=== PATIENT | male | born 1975 ===

== ENCOUNTER 2024-12-04 10:12 | Outpatient (AMB) | payer OTHER, SELFPAY ==
--- NOTE | 2024-12-04 10:17 | A.OFFVIS_ITS ---
Vital Signs 12/04/24 10:18 Height 5 ft 10 in Weight 257 lb 15.053 oz BMI 37.0 BP 130/84 Blood Pressure Location Rt brachial Position Sitting Pulse 71 Pulse Source Pulse Oximeter Pulse Oximetry (%) 98 Oxygen Delivery Method Room Air Intake Visit Reasons: Obstructive sleep apnea Allergies No Known Allergies Allergy (Verified 12/04/24 10:21) HPI Comments Details: The patient is a 49-year-old gentleman with a known history of severe sleep apnea. Apparently the patient was in usual state health until had a consultatio n with his dentist. The patient did have an elevated [place] score with significant daytime drowsiness. He has also had documented snoring with apneic episodes. The patient did undergo home sleep study demonstrating severe sleep apnea with an AHI of 47 events an hour. He was also noted to be hypoxic down to 76%. Therefore, he was referred to his primary care doctor who ordered the APAP. The APAP set at 4-20 with a fullface mask. The patient cannot use a nasal mask since he had injury or trauma to his nasal passages a child and been difficult for him to breathe through his nose. Initially he was tolerating the APAP. But we have episodes of increase difficulty tolerating the machine would have to take it off. Therefore, he would only tolerated for couple hours. He is also having hard time sleeping. Sometimes he stays awake for a while we also falls asleep and wakes up very quickly. He did bring his APAP in. We did download the data. It appears that his average pressure is around 10.4 cm. We did adjust the machine with a ramp for and to titrate between 6-10 cm. He does tolerate that or he feels like this too low can always call and we can adjust the machine accordingly. He is also complaining that the air is too hot. He immediately was set up for in the tubing was non heated tubing. Therefore I did decrease the humidity to for now and did request his [employer] company to provide him with heated tubing to set up a better temperature better tolerance for his APAP. Otherwise patient is without any other complaints. We did talk about the seriousness of the severe sleep apnea the importance using the machine to reduce his cardiovascular and cerebrovascular risk. 12/04/2024 the patient is here for a pulmonary follow-up visit. Overall the patient has been doing very well. He has been use the CPAP every night CPAP therapy has been affecting beneficial. He has finally gotten comfortable with. He did have 2 by mask, Respironics DreamWear. Seems to be tolerating it well. Although it does irritate his nose. I did provide him with a ResMed AirTouch and 30 I mask medium does seem to fit comfortably and did not irritate his nose. He is going to try and see if this works for him. I will also request supplies from his [employer] company, [employer]. I did reach out to them to make sure that he is still active. Although he does uses machine well. From a breathing standpoint he recently had a cough and likely from a viral syndrome. Now has gotten more congested. Also having some chest tightness and some post exhalation wheezing. He has used inhalers in the past right now on go ahead and send him some Symbicort that he can use for period of time. [facility] Medical History (Updated 12/04/24 @ 20:37 by Gonzalo Rcio MD) Reactive airway disease Chronic rhinitis Insomnia JENNIFER on CPAP Social History (Updated 12/04/24 @ 10:20 by Savannah Forbes CMA) Patient Tobacco Use Status: Former Tobacco user Review of Systems Const Denies daytime sleepiness, Denies snoring and Reports weight loss Eyes Denies change in vision ENT Reports epistaxis, Reports nasal congestion, Reports nasal obstruction and Denies throat swelling Card Denies chest pain Resp Reports cough and Denies snoring GI Reports no additional complaints Musc Reports no additional complaints Skin/Breast Denies rash Neuro Reports no additional complaints Nimesh/Lymph Denies easy bleeding and Denies easy bruising Aller/Immun Denies throat swelling Physical Exam Vital Signs: Last Vital Signs Pulse 71 12/04/24 10:18 BP 130/84 12/04/24 10:18 Pulse Ox 98 12/04/24 10:18 Oxygen Delivery Method Room Air 12/04/24 10:18 BMI result Body Mass Index 37.0 Const General: comfortable HEENT Head: Yes atraumatic General nose exam: Abnormal mucous membranes and turbinates present erythematous and Nasal discharge present Eyes General: appearance normal, both eyes and all related structures Neck Neck: Yes supple Chest Chest palpation & inspection: normal inspection of the chest Resp Effort & Inspection: normal respiratory effort and prolonged expiratory phase Auscultation: diminished lung sounds Cardio Rate: regular rate Rhythm: regular rhythm Heart sounds: S1 normal heart sound present and S2 normal heart sound present GI Auscultation: normal bowel sounds Extrem General: Yes no clubbing, cyanosis or edema Assessment & Plan Assessment & Plan (1) JENNIFER on CPAP: Code(s): G47.33 - Obstructive sleep apnea (adult) (pediatric); Z99.89 - Dependence on other enabling machines and devices Category: Medical (2) Insomnia: Code(s): G47.00 - Insomnia, unspecified Category: Medical Qualifiers: Insomnia type: primary Qualified Code(s): F51.01 - Primary insomnia (3) Chronic rhinitis: Code(s): J31.0 - Chronic rhinitis Category: Medical (4) Reactive airway disease: Code(s): J45.909 - Unspecified asthma, uncomplicated Category: Medical Qualifiers: Asthma severity: moderate Asthma persistence: persistent Asthma complication type: uncomplicated Qualified Code(s): J45.40 - Moderate persistent asthma, uncomplicated Plan Adjusted APAP Ramp 4, 6-10 with N30i airtouch Trazodone for sleep sinus rinse at night Fluticasone nasal spray saline gel start Symbicort start Zpack Tessalon pearls F/U 8-12 months Medications: New budesonide-formoterol 160-4.5 mcg/actuation (Breyna) 2 puffs inhalation BID 10.2 grams 11RF 30 days J44.89 - Other specified chronic obstructive pulmonary disease azithromycin 500 mg PO DAILY 3 tabs 0RF 3 days benzonatate 200 mg PO BID PRN 60 caps 0RF cough 30 days Coding Level of Care Code Est Pt Level 4 (90228) Diagnoses JENNIFER on CPAP G47.33; Z99.89 Primary insomnia F51.01 Insomnia type: primary Chronic rhinitis J31.0 Moderate persistent reactive airway disease without complication J45.40 Asthma severity: moderate Asthma persistence: persistent Asthma complication type: uncomplicated Time Spent (min) 17
[2024-12-04 10:18] VITALS: BP 130/84; PULSE 71; O2SAT 98; BMI 37.0
--- OUTSIDE RECORDS SUMMARY | 2024-12-04 11:18 | XMS_ITS ---
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5 and Other obesity E66.8 ASSESSMENTS Encounter Date Diagnosis Assessment Notes Treatment Notes Treatment Clinical Notes Section Notes 06/06/2023 Elevated blood pressure reading in office without diagnosis of hypertension (ICD-10 - R03.0) #Polyarthralgia Pt instructed to try taking turmeric supplements everyday Will discuss again after lab results Ordered RF, JEFFERSON, CRP, ERP, tick panel rheum referall #JENNIFER We sent in a request for an auth for a CPAP along with the report 2 months ago Lisa, for supplies, order sent, copy to patient to followup with them since he hasnt recieved it yet #Colonoscopy Ordered colonoscopy, GI referall #HTN BP normotensive today in the office We will check it again next visit Meanwhile, patient was told to cut down on sodium intake and eat a healthier diet DAVID if otherwise #Grieving/depress ion He was instructed to go immediately to ER and call us if he experiences any worsening symptoms He says he will discuss psychotherapy/med ication with us next time if at that time he feels like he need it #CPE scheduled in 4-6 weeks + comprehensive fasting labs Reviewed with patient the importance of medication and treatment plan compliance with BP goal of less then 140/90 per JNC 8 guidelines based on patient's age. This will ensure optimal health outcomes and prevent target organ damage. Made aware that uncontrolled hypertension may be silent and result in a stroke, heart attack, renal failure or even . Discussed the rationale for individualized medication regimen and the effects of their BP. Instructed to seek emergent care if the patient develops a headache, blurry vision, dizziness, chest pain or pressure. Patient seen and examined. Comprehensive discussion was done on the following. Patient was reassured and welcomed to the practice. We discussed that we stress a hollistic medical approach with emphasis on lifestyle modification. Patient was informed that a healthy lifestyle with exercise and good eating habits can help reduce his risk of medical complications. He is explained that obesity increases his risk of diabetes, cardiovascular disease, or organ damage. 1. Nutrition: It is important to follow a healthy diet based on lots of vegetables and legumes and good fat. Avoid processed food and processed carbohydrates. Learn to prepare your own meals. Learn to read labels and avoid high fructose corn syrup, processed chemicals added to increase shelf life and preprepared meals. Avoid fast foods. Learn to eat slowly and plan meals for a week. Try to count calories and be mindful off daily calorie intake. Get into the habit of keeping an eye on your weight by using an appropriate scale. Learn to log exercise and discussed fitness Apps like NowSpots which can help keep log off calories taken versus calories burned. Local food should be preferred. Discussed Dirty Dozen Versus Clean Fifteen. Discussed healthy supplements like fish oil, Tumeric, Curcumin, Melatonin, Resveratrol, Probiotics, Vitamin-D, Alpha-Lipoic acid, Vitamin-D and coconut oil. 2. It is important to exercise regularly. Is a good habit to walk at least 30-45 minutes a day. Gentle weightlifting with standard precautions to protect the back. Finding activity like cycling or hiking and get into the habit of engaging in it. Stretching before and after the exercises important. It is also important to contact me if there are any problems like shortness of breath, chest pain, back pain and joint or muscle pain associated with the exercise. 3. Discussed age appropriate screening guidelines. Colonoscopy needs to start at age 45 with stool for occult blood as appropriate. There is a new test that can test for genetic abnormalities in the stool sample. This would not replace a colonoscopy but could be used as a screening tool for patients who do not want a colonoscopy. We discussed the importance of early detection of colon cancer. 4. Discussed current guidelines with respect to breast examination, mammogram and pap smear for early detection of breast and cervical cancer. Patient advised to follow up with these appointments, gender specific/age specific of course if applicbale 5. Discussed safe driving and no use of smart phone while driving 6. Age-appropriate immunizations were discussed. A tetanus booster is needed every 10 years. Flu vaccine is recommended every year just before the start of the flu season. Shingles vaccine is recommended after age 50 but not all insurances cover it. Pneumonia vaccine is given after age 65 unless there are certain comorbidities for which it is started earlier. 7. Diagnostic labs were discussed. These could include CBC CMP and lipids with fasting blood glucose and insulin levels. Vitamin D and hemoglobin A1c testing might be appropriate PSA screening and false negatives. 8. Recommended body composition. Discussed body composition analysis with patient in significant detail. She will work on losing some weight and increasing her phase angle and body composition 9. MOLST/HCP paperwork discussed, neurocognitive assesment if appropriate/prakash schwartz 06/06/2023 Prediabetes (ICD-10 - R73.03) #Polyarthralgia Pt instructed to try taking turmeric supplements everyday Will discuss again after lab results Ordered RF, JEFFERSON, CRP, ERP, tick panel rheum referall #JENNIFER We sent in a request for an auth for a CPAP along with the report 2 months ago Lisa, for supplies, order sent, copy to patient to followup with them since he hasnt recieved it yet #Colonoscopy Ordered colonoscopy, GI referall #HTN BP normotensive today in the office We will check it again next visit Meanwhile, patient was told to cut down on sodium intake and eat a healthier diet DAVID if otherwise #Grieving/depress ion He was instructed to go immediately to ER and call us if he experiences any worsening symptoms He says he will discuss psychotherapy/med ication with us next time if at that time he feels like he need it #CPE scheduled in 4-6 weeks + comprehensive fasting labs Reviewed with patient the importance of medication and treatment plan compliance with BP goal of less then 140/90 per JNC 8 guidelines based on patient's age. This will ensure optimal health outcomes and prevent target organ damage. Made aware that uncontrolled hypertension may be silent and result in a stroke, heart attack, renal failure or even . Discussed the rationale for individualized medication regimen and the effects of their BP. Instructed to seek emergent care if the patient develops a headache, blurry vision, dizziness, chest pain or pressure. Patient seen and examined. Comprehensive discussion was done on the following. Patient was reassured and welcomed to the practice. We discussed that we stress a hollistic medical approach with emphasis on lifestyle modification. Patient was informed that a healthy lifestyle with exercise and good eating habits can help reduce his risk of medical complications. He is explained that obesity increases his risk of diabetes, cardiovascular disease, or organ damage. 1. Nutrition: It is important to follow a healthy diet based on lots of vegetables and legumes and good fat. Avoid processed food and processed carbohydrates. Learn to prepare your own meals. Learn to read labels and avoid high fructose corn syrup, processed chemicals added to increase shelf life and preprepared meals. Avoid fast foods. Learn to eat slowly and plan meals for a week. Try to count calories and be mindful off daily calorie intake. Get into the habit of keeping an eye on your weight by using an appropriate scale. Learn to log exercise and discussed fitness Apps like NowSpots which can help keep log off calories taken versus calories burned. Local food should be preferred. Discussed Dirty Dozen Versus Clean Fifteen. Discussed healthy supplements like fish oil, Tumeric, Curcumin, Melatonin, Resveratrol, Probiotics, Vitamin-D, Alpha-Lipoic acid, Vitamin-D and coconut oil. 2. It is important to exercise regularly. Is a good habit to walk at least 30-45 minutes a day. Gentle weightlifting with standard precautions to protect the back. Finding activity like cycling or hiking and get into the habit of engaging in it. Stretching before and after the exercises important. It is also important to contact me if there are any problems like shortness of breath, chest pain, back pain and joint or muscle pain associated with the exercise. 3. Discussed age appropriate screening guidelines. Colonoscopy needs to start at age 45 with stool for occult blood as appropriate. There is a new test that can test for genetic abnormalities in the stool sample. This would not replace a colonoscopy but could be used as a screening tool for patients who do not want a colonoscopy. We discussed the importance of early detection of colon cancer. 4. Discussed current guidelines with respect to breast examination, mammogram and pap smear for early detection of breast and cervical cancer. Patient advised to follow up with these appointments, gender specific/age specific of course if applicbale 5. Discussed safe driving and no use of smart phone while driving 6. Age-appropriate immunizations were discussed. A tetanus booster is needed every 10 years. Flu vaccine is recommended every year just before the start of the flu season. Shingles vaccine is recommended after age 50 but not all insurances cover it. Pneumonia vaccine is given after age 65 unless there are certain comorbidities for which it is started earlier. 7. Diagnostic labs were discussed. These could include CBC CMP and lipids with fasting blood glucose and insulin levels. Vitamin D and hemoglobin A1c testing might be appropriate PSA screening and false negatives. 8. Recommended body composition. Discussed body composition analysis with patient in significant detail. She will work on losing some weight and increasing her phase angle and body composition 9. MOLST/HCP paperwork discussed, neurocognitive assesment if appropriate/prakash nted 06/06/2023 Other obesity due to excess calories (ICD-10 - E66.09) #Polyarthralgia Pt instructed to try taking turmeric supplements everyday Will discuss again after lab results Ordered RF, JEFFERSON, CRP, ERP, tick panel rheum referall #JENNIFER We sent in a request for an auth for a CPAP along with the report 2 months ago Lisa, for supplies, order sent, copy to patient to followup with them since he hasnt recieved it yet #Colonoscopy Ordered colonoscopy, GI referall #HTN BP normotensive today in the office We will check it again next visit Meanwhile, patient was told to cut down on sodium intake and eat a healthier diet DAVID if otherwise #Grieving/depress ion He was instructed to go immediately to ER and call us if he experiences any worsening symptoms He says he will discuss psychotherapy/med ication with us next time if at that time he feels like he need it #CPE scheduled in 4-6 weeks + comprehensive fasting labs Reviewed with patient the importance of medication and treatment plan compliance with BP goal of less then 140/90 per JNC 8 guidelines based on patient's age. This will ensure optimal health outcomes and prevent target organ damage. Made aware that uncontrolled hypertension may be silent and result in a stroke, heart attack, renal failure or even . Discussed the rationale for individualized medication regimen and the effects of their BP. Instructed to seek emergent care if the patient develops a headache, blurry vision, dizziness, chest pain or pressure. Patient seen and examined. Comprehensive discussion was done on the following. Patient was reassured and welcomed to the practice. We discussed that we stress a hollistic medical approach with emphasis on lifestyle modification. Patient was informed that a healthy lifestyle with exercise and good eating habits can help reduce his risk of medical complications. He is explained that obesity increases his risk of diabetes, cardiovascular disease, or organ damage. 1. Nutrition: It is important to follow a healthy diet based on lots of vegetables and legumes and good fat. Avoid processed food and processed carbohydrates. Learn to prepare your own meals. Learn to read labels and avoid high fructose corn syrup, processed chemicals added to increase shelf life and preprepared meals. Avoid fast foods. Learn to eat slowly and plan meals for a week. Try to count calories and be mindful off daily calorie intake. Get into the habit of keeping an eye on your weight by using an appropriate scale. Learn to log exercise and discussed fitness Apps like NowSpots which can help keep log off calories taken versus calories burned. Local food should be preferred. Discussed Dirty Dozen Versus Clean Fifteen. Discussed healthy supplements like fish oil, Tumeric, Curcumin, Melatonin, Resveratrol, Probiotics, Vitamin-D, Alpha-Lipoic acid, Vitamin-D and coconut oil. 2. It is important to exercise regularly. Is a good habit to walk at least 30-45 minutes a day. Gentle weightlifting with standard precautions to protect the back. Finding activity like cycling or hiking and get into the habit of engaging in it. Stretching before and after the exercises important. It is also important to contact me if there are any problems like shortness of breath, chest pain, back pain and joint or muscle pain associated with the exercise. 3. Discussed age appropriate screening guidelines. Colonoscopy needs to start at age 45 with stool for occult blood as appropriate. There is a new test that can test for genetic abnormalities in the stool sample. This would not replace a colonoscopy but could be used as a screening tool for patients who do not want a colonoscopy. We discussed the importance of early detection of colon cancer. 4. Discussed current guidelines with respect to breast examination, mammogram and pap smear for early detection of breast and cervical cancer. Patient advised to follow up with these appointments, gender specific/age specific of course if applicbale 5. Discussed safe driving and no use of smart phone while driving 6. Age-appropriate immunizations were discussed. A tetanus booster is needed every 10 years. Flu vaccine is recommended every year just before the start of the flu season. Shingles vaccine is recommended after age 50 but not all insurances cover it. Pneumonia vaccine is given after age 65 unless there are certain comorbidities for which it is started earlier. 7. Diagnostic labs were discussed. These could include CBC CMP and lipids with fasting blood glucose and insulin levels. Vitamin D and hemoglobin A1c testing might be appropriate PSA screening and false negatives. 8. Recommended body composition. Discussed body composition analysis with patient in significant detail. She will work on losing some weight and increasing her phase angle and body composition 9. MOLST/HCP paperwork discussed, neurocognitive assesment if appropriate/prakash schwartz 06/06/2023 Body mass index [BMI] 39.0-39.9, adult (ICD-10 - Z68.39) #Polyarthralgia Pt instructed to try taking turmeric supplements everyday Will discuss again after lab results Ordered RF, JEFFERSON, CRP, ERP, tick panel rheum referall #JENNIFER We sent in a request for an auth for a CPAP along with the report 2 months ago Lisa, for supplies, order sent, copy to patient to followup with them since he hasnt recieved it yet #Colonoscopy Ordered colonoscopy, GI referall #HTN BP normotensive today in the office We will check it again next visit Meanwhile, patient was told to cut down on sodium intake and eat a healthier diet DAVID if otherwise #Grieving/depress ion He was instructed to go immediately to ER and call us if he experiences any worsening symptoms He says he will discuss psychotherapy/med ication with us next time if at that time he feels like he need it #CPE scheduled in 4-6 weeks + comprehensive fasting labs Reviewed with patient the importance of medication and treatment plan compliance with BP goal of less then 140/90 per JNC 8 guidelines based on patient's age. This will ensure optimal health outcomes and prevent target organ damage. Made aware that uncontrolled hypertension may be silent and result in a stroke, heart attack, renal failure or even . Discussed the rationale for individualized medication regimen and the effects of their BP. Instructed to seek emergent care if the patient develops a headache, blurry vision, dizziness, chest pain or pressure. Patient seen and examined. Comprehensive discussion was done on the following. Patient was reassured and welcomed to the practice. We discussed that we stress a hollistic medical approach with emphasis on lifestyle modification. Patient was informed that a healthy lifestyle with exercise and good eating habits can help reduce his risk of medical complications. He is explained that obesity increases his risk of diabetes, cardiovascular disease, or organ damage. 1. Nutrition: It is important to follow a healthy diet based on lots of vegetables and legumes and good fat. Avoid processed food and processed carbohydrates. Learn to prepare your own meals. Learn to read labels and avoid high fructose corn syrup, processed chemicals added to increase shelf life and preprepared meals. Avoid fast foods. Learn to eat slowly and plan meals for a week. Try to count calories and be mindful off daily calorie intake. Get into the habit of keeping an eye on your weight by using an appropriate scale. Learn to log exercise and discussed fitness Apps like NowSpots which can help keep log off calories taken versus calories burned. Local food should be preferred. Discussed Dirty Dozen Versus Clean Fifteen. Discussed healthy supplements like fish oil, Tumeric, Curcumin, Melatonin, Resveratrol, Probiotics, Vitamin-D, Alpha-Lipoic acid, Vitamin-D and coconut oil. 2. It is important to exercise regularly. Is a good habit to walk at least 30-45 minutes a day. Gentle weightlifting with standard precautions to protect the back. Finding activity like cycling or hiking and get into the habit of engaging in it. Stretching before and after the exercises important. It is also important to contact me if there are any problems like shortness of breath, chest pain, back pain and joint or muscle pain associated with the exercise. 3. Discussed age appropriate screening guidelines. Colonoscopy needs to start at age 45 with stool for occult blood as appropriate. There is a new test that can test for genetic abnormalities in the stool sample. This would not replace a colonoscopy but could be used as a screening tool for patients who do not want a colonoscopy. We discussed the importance of early detection of colon cancer. 4. Discussed current guidelines with respect to breast examination, mammogram and pap smear for early detection of breast and cervical cancer. Patient advised to follow up with these appointments, gender specific/age specific of course if applicbale 5. Discussed safe driving and no use of smart phone while driving 6. Age-appropriate immunizations were discussed. A tetanus booster is needed every 10 years. Flu vaccine is recommended every year just before the start of the flu season. Shingles vaccine is recommended after age 50 but not all insurances cover it. Pneumonia vaccine is given after age 65 unless there are certain comorbidities for which it is started earlier. 7. Diagnostic labs were discussed. These could include CBC CMP and lipids with fasting blood glucose and insulin levels. Vitamin D and hemoglobin A1c testing might be appropriate PSA screening and false negatives. 8. Recommended body composition. Discussed body composition analysis with patient in significant detail. She will work on losing some weight and increasing her phase angle and body composition 9. MOLST/HCP paperwork discussed, neurocognitive assesment if appropriate/prakash ntcarol 06/06/2023 JENNIFER (obstructive sleep apnea) (ICD-10 - G47.33) #Polyarthralgia Pt instructed to try taking turmeric supplements everyday Will discuss again after lab results Ordered RF, JEFFERSON, CRP, ERP, tick panel rheum referall #JENNIFER We sent in a request for an auth for a CPAP along with the report 2 months ago Lisa, for supplies, order sent, copy to patient to followup with them since he hasnt recieved it yet #Colonoscopy Ordered colonoscopy, GI referall #HTN BP normotensive today in the office We will check it again next visit Meanwhile, patient was told to cut down on sodium intake and eat a healthier diet DAVID if otherwise #Grieving/depress ion He was instructed to go immediately to ER and call us if he experiences any worsening symptoms He says he will discuss psychotherapy/med ication with us next time if at that time he feels like he need it #CPE scheduled in 4-6 weeks + comprehensive fasting labs Reviewed with patient the importance of medication and treatment plan compliance with BP goal of less then 140/90 per JNC 8 guidelines based on patient's age. This will ensure optimal health outcomes and prevent target organ damage. Made aware that uncontrolled hypertension may be silent and result in a stroke, heart attack, renal failure or even . Discussed the rationale for individualized medication regimen and the effects of their BP. Instructed to seek emergent care if the patient develops a headache, blurry vision, dizziness, chest pain or pressure. Patient seen and examined. Comprehensive discussion was done on the following. Patient was reassured and welcomed to the practice. We discussed that we stress a hollistic medical approach with emphasis on lifestyle modification. Patient was informed that a healthy lifestyle with exercise and good eating habits can help reduce his risk of medical complications. He is explained that obesity increases his risk of diabetes, cardiovascular disease, or organ damage. 1. Nutrition: It is important to follow a healthy diet based on lots of vegetables and legumes and good fat. Avoid processed food and processed carbohydrates. Learn to prepare your own meals. Learn to read labels and avoid high fructose corn syrup, processed chemicals added to increase shelf life and preprepared meals. Avoid fast foods. Learn to eat slowly and plan meals for a week. Try to count calories and be mindful off daily calorie intake. Get into the habit of keeping an eye on your weight by using an appropriate scale. Learn to log exercise and discussed fitness Apps like NowSpots which can help keep log off calories taken versus calories burned. Local food should be preferred. Discussed Dirty Dozen Versus Clean Fifteen. Discussed healthy supplements like fish oil, Tumeric, Curcumin, Melatonin, Resveratrol, Probiotics, Vitamin-D, Alpha-Lipoic acid, Vitamin-D and coconut oil. 2. It is important to exercise regularly. Is a good habit to walk at least 30-45 minutes a day. Gentle weightlifting with standard precautions to protect the back. Finding activity like cycling or hiking and get into the habit of engaging in it. Stretching before and after the exercises important. It is also important to contact me if there are any problems like shortness of breath, chest pain, back pain and joint or muscle pain associated with the exercise. 3. Discussed age appropriate screening guidelines. Colonoscopy needs to start at age 45 with stool for occult blood as appropriate. There is a new test that can test for genetic abnormalities in the stool sample. This would not replace a colonoscopy but could be used as a screening tool for patients who do not want a colonoscopy. We discussed the importance of early detection of colon cancer. 4. Discussed current guidelines with respect to breast examination, mammogram and pap smear for early detection of breast and cervical cancer. Patient advised to follow up with these appointments, gender specific/age specific of course if applicbale 5. Discussed safe driving and no use of smart phone while driving 6. Age-appropriate immunizations were discussed. A tetanus booster is needed every 10 years. Flu vaccine is recommended every year just before the start of the flu season. Shingles vaccine is recommended after age 50 but not all insurances cover it. Pneumonia vaccine is given after age 65 unless there are certain comorbidities for which it is started earlier. 7. Diagnostic labs were discussed. These could include CBC CMP and lipids with fasting blood glucose and insulin levels. Vitamin D and hemoglobin A1c testing might be appropriate PSA screening and false negatives. 8. Recommended body composition. Discussed body composition analysis with patient in significant detail. She will work on losing some weight and increasing her phase angle and body composition 9. MOLST/HCP paperwork discussed, neurocognitive assesment if appropriate/prakash nted 06/06/2023 Arthralgia, unspecified joint (ICD-10 - M25.50) #Polyarthralgia Pt instructed to try taking turmeric supplements everyday Will discuss again after lab results Ordered RF, JEFFERSON, CRP, ERP, tick panel rheum referall #JENNIFER We sent in a request for an auth for a CPAP along with the report 2 months ago Lisa, for supplies, order sent, copy to patient to followup with them since he hasnt recieved it yet #Colonoscopy Ordered colonoscopy, GI referall #HTN BP normotensive today in the office We will check it again next visit Meanwhile, patient was told to cut down on sodium intake and eat a healthier diet DAVID if otherwise #Grieving/depress ion He was instructed to go immediately to ER and call us if he experiences any worsening symptoms He says he will discuss psychotherapy/med ication with us next time if at that time he feels like he need it #CPE scheduled in 4-6 weeks + comprehensive fasting labs Reviewed with patient the importance of medication and treatment plan compliance with BP goal of less then 140/90 per JNC 8 guidelines based on patient's age. This will ensure optimal health outcomes and prevent target organ damage. Made aware that uncontrolled hypertension may be silent and result in a stroke, heart attack, renal failure or even . Discussed the rationale for individualized medication regimen and the effects of their BP. Instructed to seek emergent care if the patient develops a headache, blurry vision, dizziness, chest pain or pressure. Patient seen and examined. Comprehensive discussion was done on the following. Patient was reassured and welcomed to the practice. We discussed that we stress a hollistic medical approach with emphasis on lifestyle modification. Patient was informed that a healthy lifestyle with exercise and good eating habits can help reduce his risk of medical complications. He is explained that obesity increases his risk of diabetes, cardiovascular disease, or organ damage. 1. Nutrition: It is important to follow a healthy diet based on lots of vegetables and legumes and good fat. Avoid processed food and processed carbohydrates. Learn to prepare your own meals. Learn to read labels and avoid high fructose corn syrup, processed chemicals added to increase shelf life and preprepared meals. Avoid fast foods. Learn to eat slowly and plan meals for a week. Try to count calories and be mindful off daily calorie intake. Get into the habit of keeping an eye on your weight by using an appropriate scale. Learn to log exercise and discussed fitness Apps like NowSpots which can help keep log off calories taken versus calories burned. Local food should be preferred. Discussed Dirty Dozen Versus Clean Fifteen. Discussed healthy supplements like fish oil, Tumeric, Curcumin, Melatonin, Resveratrol, Probiotics, Vitamin-D, Alpha-Lipoic acid, Vitamin-D and coconut oil. 2. It is important to exercise regularly. Is a good habit to walk at least 30-45 minutes a day. Gentle weightlifting with standard precautions to protect the back. Finding activity like cycling or hiking and get into the habit of engaging in it. Stretching before and after the exercises important. It is also important to contact me if there are any problems like shortness of breath, chest pain, back pain and joint or muscle pain associated with the exercise. 3. Discussed age appropriate screening guidelines. Colonoscopy needs to start at age 45 with stool for occult blood as appropriate. There is a new test that can test for genetic abnormalities in the stool sample. This would not replace a colonoscopy but could be used as a screening tool for patients who do not want a colonoscopy. We discussed the importance of early detection of colon cancer. 4. Discussed current guidelines with respect to breast examination, mammogram and pap smear for early detection of breast and cervical cancer. Patient advised to follow up with these appointments, gender specific/age specific of course if applicbale 5. Discussed safe driving and no use of smart phone while driving 6. Age-appropriate immunizations were discussed. A tetanus booster is needed every 10 years. Flu vaccine is recommended every year just before the start of the flu season. Shingles vaccine is recommended after age 50 but not all insurances cover it. Pneumonia vaccine is given after age 65 unless there are certain comorbidities for which it is started earlier. 7. Diagnostic labs were discussed. These could include CBC CMP and lipids with fasting blood glucose and insulin levels. Vitamin D and hemoglobin A1c testing might be appropriate PSA screening and false negatives. 8. Recommended body composition. Discussed body composition analysis with patient in significant detail. She will work on losing some weight and increasing her phase angle and body composition 9. MOLST/HCP paperwork discussed, neurocognitive assesment if appropriate/prakash nted 06/06/2023 Hyperlipidemia, unspecified (ICD-10 - E78.5) #Polyarthralgia Pt instructed to try taking turmeric supplements everyday Will discuss again after lab results Ordered RF, JEFFERSON, CRP, ERP, tick panel rheum referall #JENNIFER We sent in a request for an auth for a CPAP along with the report 2 months ago Lisa, for supplies, order sent, copy to patient to followup with them since he hasnt recieved it yet #Colonoscopy Ordered colonoscopy, GI referall #HTN BP normotensive today in the office We will check it again next visit Meanwhile, patient was told to cut down on sodium intake and eat a healthier diet DAVID if otherwise #Grieving/depress ion He was instructed to go immediately to ER and call us if he experiences any worsening symptoms He says he will discuss psychotherapy/med ication with us next time if at that time he feels like he need it #CPE scheduled in 4-6 weeks + comprehensive fasting labs Reviewed with patient the importance of medication and treatment plan compliance with BP goal of less then 140/90 per JNC 8 guidelines based on patient's age. This will ensure optimal health outcomes and prevent target organ damage. Made aware that uncontrolled hypertension may be silent and result in a stroke, heart attack, renal failure or even . Discussed the rationale for individualized medication regimen and the effects of their BP. Instructed to seek emergent care if the patient develops a headache, blurry vision, dizziness, chest pain or pressure. Patient seen and examined. Comprehensive discussion was done on the following. Patient was reassured and welcomed to the practice. We discussed that we stress a hollistic medical approach with emphasis on lifestyle modification. Patient was informed that a healthy lifestyle with exercise and good eating habits can help reduce his risk of medical complications. He is explained that obesity increases his risk of diabetes, cardiovascular disease, or organ damage. 1. Nutrition: It is important to follow a healthy diet based on lots of vegetables and legumes and good fat. Avoid processed food and processed carbohydrates. Learn to prepare your own meals. Learn to read labels and avoid high fructose corn syrup, processed chemicals added to increase shelf life and preprepared meals. Avoid fast foods. Learn to eat slowly and plan meals for a week. Try to count calories and be mindful off daily calorie intake. Get into the habit of keeping an eye on your weight by using an appropriate scale. Learn to log exercise and discussed fitness Apps like NowSpots which can help keep log off calories taken versus calories burned. Local food should be preferred. Discussed Dirty Dozen Versus Clean Fifteen. Discussed healthy supplements like fish oil, Tumeric, Curcumin, Melatonin, Resveratrol, Probiotics, Vitamin-D, Alpha-Lipoic acid, Vitamin-D and coconut oil. 2. It is important to exercise regularly. Is a good habit to walk at least 30-45 minutes a day. Gentle weightlifting with standard precautions to protect the back. Finding activity like cycling or hiking and get into the habit of engaging in it. Stretching before and after the exercises important. It is also important to contact me if there are any problems like shortness of breath, chest pain, back pain and joint or muscle pain associated with the exercise. 3. Discussed age appropriate screening guidelines. Colonoscopy needs to start at age 45 with stool for occult blood as appropriate. There is a new test that can test for genetic abnormalities in the stool sample. This would not replace a colonoscopy but could be used as a screening tool for patients who do not want a colonoscopy. We discussed the importance of early detection of colon cancer. 4. Discussed current guidelines with respect to breast examination, mammogram and pap smear for early detection of breast and cervical cancer. Patient advised to follow up with these appointments, gender specific/age specific of course if applicbale 5. Discussed safe driving and no use of smart phone while driving 6. Age-appropriate immunizations were discussed. A tetanus booster is needed every 10 years. Flu vaccine is recommended every year just before the start of the flu season. Shingles vaccine is recommended after age 50 but not all insurances cover it. Pneumonia vaccine is given after age 65 unless there are certain comorbidities for which it is started earlier. 7. Diagnostic labs were discussed. These could include CBC CMP and lipids with fasting blood glucose and insulin levels. Vitamin D and hemoglobin A1c testing might be appropriate PSA screening and false negatives. 8. Recommended body composition. Discussed body composition analysis with patient in significant detail. She will work on losing some weight and increasing her phase angle and body composition 9. MOLST/HCP paperwork discussed, neurocognitive assesment if appropriate/prakash nted 06/06/2023 Other obesity (ICD-10 - E66.8) #Polyarthralgia Pt instructed to try taking turmeric supplements everyday Will discuss again after lab results Ordered RF, JEFFERSON, CRP, ERP, tick panel rheum referall #JENNIEFR We sent in a request for an auth for a CPAP along with the report 2 months ago Lisa, for supplies, order sent, copy to patient to followup with them since he hasnt recieved it yet #Colonoscopy Ordered colonoscopy, GI referall #HTN BP normotensive today in the office We will check it again next visit Meanwhile, patient was told to cut down on sodium intake and eat a healthier diet DAVID if otherwise #Grieving/depress ion He was instructed to go immediately to ER and call us if he experiences any worsening symptoms He says he will discuss psychotherapy/med ication with us next time if at that time he feels like he need it #CPE scheduled in 4-6 weeks + comprehensive fasting labs Reviewed with patient the importance of medication and treatment plan compliance with BP goal of less then 140/90 per JNC 8 guidelines based on patient's age. This will ensure optimal health outcomes and prevent target organ damage. Made aware that uncontrolled hypertension may be silent and result in a stroke, heart attack, renal failure or even . Discussed the rationale for individualized medication regimen and the effects of their BP. Instructed to seek emergent care if the patient develops a headache, blurry vision, dizziness, chest pain or pressure. Patient seen and examined. Comprehensive discussion was done on the following. Patient was reassured and welcomed to the practice. We discussed that we stress a hollistic medical approach with emphasis on lifestyle modification. Patient was informed that a healthy lifestyle with exercise and good eating habits can help reduce his risk of medical complications. He is explained that obesity increases his risk of diabetes, cardiovascular disease, or organ damage. 1. Nutrition: It is important to follow a healthy diet based on lots of vegetables and legumes and good fat. Avoid processed food and processed carbohydrates. Learn to prepare your own meals. Learn to read labels and avoid high fructose corn syrup, processed chemicals added to increase shelf life and preprepared meals. Avoid fast foods. Learn to eat slowly and plan meals for a week. Try to count calories and be mindful off daily calorie intake. Get into the habit of keeping an eye on your weight by using an appropriate scale. Learn to log exercise and discussed fitness Apps like NowSpots which can help keep log off calories taken versus calories burned. Local food should be preferred. Discussed Dirty Dozen Versus Clean Fifteen. Discussed healthy supplements like fish oil, Tumeric, Curcumin, Melatonin, Resveratrol, Probiotics, Vitamin-D, Alpha-Lipoic acid, Vitamin-D and coconut oil. 2. It is important to exercise regularly. Is a good habit to walk at least 30-45 minutes a day. Gentle weightlifting with standard precautions to protect the back. Finding activity like cycling or hiking and get into the habit of engaging in it. Stretching before and after the exercises important. It is also important to contact me if there are any problems like shortness of breath, chest pain, back pain and joint or muscle pain associated with the exercise. 3. Discussed age appropriate screening guidelines. Colonoscopy needs to start at age 45 with stool for occult blood as appropriate. There is a new test that can test for genetic abnormalities in the stool sample. This would not replace a colonoscopy but could be used as a screening tool for patients who do not want a colonoscopy. We discussed the importance of early detection of colon cancer. 4. Discussed current guidelines with respect to breast examination, mammogram and pap smear for early detection of breast and cervical cancer. Patient advised to follow up with these appointments, gender specific/age specific of course if applicbale 5. Discussed safe driving and no use of smart phone while driving 6. Age-appropriate immunizations were discussed. A tetanus booster is needed every 10 years. Flu vaccine is recommended every year just before the start of the flu season. Shingles vaccine is recommended after age 50 but not all insurances cover it. Pneumonia vaccine is given after age 65 unless there are certain comorbidities for which it is started earlier. 7. Diagnostic labs were discussed. These could include CBC CMP and lipids with fasting blood glucose and insulin levels. Vitamin D and hemoglobin A1c testing might be appropriate PSA screening and false negatives. 8. Recommended body composition. Discussed body composition analysis with patient in significant detail. She will work on losing some weight and increasing her phase angle and body composition 9. MOLST/HCP paperwork discussed, neurocognitive assesment if appropriate/prakash schwartz PLAN OF TREATMENT No Information Progress Notes * NIKHIL STRANGE TDOB:1975 (49 yo M)Acc No.[id number]:06/06/2023 Progress Notes Patient:??NIKHIL STRANGE T Provider:??JACKIE ANSARI NP :1975?Age:48 Y?Sex:Ilene le Date:06/06/2023 Address:[address] [place] [address] [id number] Subjective: * Chief Complaints: * ?1. 4 month f/u with la b. * HPI: ?Constitutional:? 47-year-old male patient here today for Chronic disease management follow-up visit ?Patient seen and examined. ? Full past medical history, social history, family history, ?allergies and current medications were reviewed and updated. ?He has not been seen in her office in quite some time about 2 years ?Presents to the clinic with his today ?Last labs in June 2020/CPE ?COVID MRNA shots x 3 ?Flu shot - he can't get them because he says every time he gets the shot, he gets pneumonia ?#He has a prediabetic A1c of 5.9-6.0 ?he says his diet has not been great, only eats cheese and coffee in the AM ?, snacks a lot on high sugary foods ?has been gaining a lot of weight ?his BMI now is 39, bordering morbid obesity ?discussed in detail carb reduction, eating more healthy fats and proteins, ?exercising as tolerated such as swimming which would be less strenuous on his joints ?he has lost 11 lbs since last visit ?#Polyarthralgia ?He complains of symmetric joint pain in his feet, knees, low back, and fingers ?denies arthralgia anywhere else ?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 ?We sent in a request for an auth for a CPAP along with the report to Lisa ?for auto titration CPAP ?#Colonoscopy ?He says his last colonoscopy was about 6 yrs ago, and his sister from colon cancer ? in 2020 in her early 40's. His GI specialist told him he needs to do a colonoscopy ? every 5 years given familial history ?Ordered referall for colonoscopy ?#HTN ?BP 150/80 in the office ?We will check it again next visit ?given obesity, likely stage 1 ?Meanwhile, patient was told to cut down on sodium intake and eat a healthier diet ?#Grieving/depression ?Patient tearful in the office today and reports feeling depressed due to his ? sister passing away, weight gain, and joint pain ?He says on most days he just stays in bed and doesn't want to do anything ?Has a hard time going to work and staying focused ?He says his has been supportive, and doesn't feel like he needs any ? additional help with the grieving process/depression ?We strongly suggested he tries psychotherapy and/or an antidepressant ?He feels he wants to get through it on his own with his family support ?He denies SI/HI ?He was instructed to go immediately to ER and call us if he experiences any worsening symptoms ?He says he will discuss psychotherapy/medication with us next time ?Comprehensive labs reviewed ?Prediabetic A1c of 6.0 ?Chemistry panel and renal function is stable ?Lipids stable ?D is 23 ?Cardiac CRP unremarkable ?ESR is elevated ?Rheumatoid factor is negative. * ROS:?Constitutional: Patient denies any excessive fatigue with exercise, no weight loss, no fever and no night sweats Eyes: No eye discharge, no itching, no redness. Advised the significance of regular eye exams to screen for glaucoma and other eye problems Ear nose throat: No sore throat, postnasal drip, runny nose, Sneezing Cardiovascular: No chest pain, no shortness of breath, no dyspnea on exertion, no PND, no orthopnea, no irregular pulse Respiratory: No chronic cough, no hemoptysis, no sputum, no wheezing GI, no diarrhea, no constipation no blood in the stools, no pain associated with eating, no indigestion Genitourinary: No painful urination no hesitancy no blood in the urine Musculoskeletal: + arthralgia of knee, feet, hands bilaterally no joint deformity, no joint stiffness, no chronic back pain, no noise with joint movement Integumentary, no new skin rash. No new changes in skin moles Neurological: No history of seizures, memory loss, No language dysfunction, No inability to concentrate, no localized weakness, no sensation loss, no confusion Psychiatric: + depression denies thoughts of harming himself or others, no anxiety Endocrine: No polyuria no polyphagia or polydipsia, no heat intolerance no cold intolerance Hematological: No easy bruising or Lymph node swelling. * Medical History:?? Objective: * Examination: ?General Examination: ?GENERAL APPEARANCE:??in no acute distress, well developed, well nourished.??HEAD:??normocephalic, atraumatic.??EYES:??pupils equal, round, reactive to light and accommodation.??EARS:??normal.??ORAL CAVITY:??mucosa moist.??THROAT:??clear.??NECK/THYROID:??neck supple, full range of motion, no cervical lymphadenopathy.??SKIN:??no suspicious lesions, warm and dry.??HEART:??no murmurs, regular rate and rhythm, S1, S2 normal.??LUNGS:??clear to auscultation bilaterally.??ABDOMEN:??normal, bowel sounds present, soft, nontender, nondistended.??EXTREMITIES:??no clubbing, cyanosis, or edema.??NEUROLOGIC:??nonfocal, motor strength normal upper and lower extremities, sensory exam intact.? Assessment: * Assessment: 1.??Elevated blood pressure reading in office without diagnosis of hypertension - R03.0??2.??Prediabetes - R73.03??3.??Other obesity due to excess calories - E66.09??4.??Body mass index [BMI] 39.0-39.9, adult - Z68.39??5.??JENNIFER (obstructive sleep apnea) - G47.33??6.??Arthralgia, unspecified joint - M25.50??7.??Hyperlipidemia, unspecified - E78.5??8.??Other obesity - E66.8?? #Polyarthralgia Pt instructed to try taking turmeric supplements everyday Will discuss again after lab results Ordered RF, JEFFERSON, CRP, ERP, tick panel rheum referall #JENNIFER We sent in a request for an auth for a CPAP along with the report 2 months ago Lisa, for supplies, order sent, copy to patient to followup with them since he hasnt recieved it yet #Colonoscopy Ordered colonoscopy, GI referall #HTN BP normotensive today in the office We will check it again next visit Meanwhile, patient was told to cut down on sodium intake and eat a healthier diet DAVID if otherwise #Grieving/depression He was instructed to go immediately to ER and call us if he experiences any worsening symptoms He says he will discuss psychotherapy/medication with us next time if at that time he feels like he need it #CPE scheduled in 4-6 weeks + comprehensive fasting labs Reviewed with patient the importance of medication and treatment plan compliance with BP goal of less then 140/90 per JNC 8 guidelines based on patient's age. This will ensure optimal health outcomes and prevent target organ damage. Made aware that uncontrolled hypertension may be silent and result in a stroke, heart attack, renal failure or even . Discussed the rationale for individualized medication regimen and the effects of their BP. Instructed to seek emergent care if the patient develops a headache, blurry vision, dizziness, chest pain or pressure. Patient seen and examined. Comprehensive discussion was done on the following. Patient was reassured and welcomed to the practice. We discussed that we stress a hollistic medical approach with emphasis on lifestyle modification. Patient was informed that a healthy lifestyle with exercise and good eating habits can help reduce his risk of medical complications. He is explained that obesity increases his risk of diabetes, cardiovascular disease, or organ damage. 1. Nutrition: It is important to follow a healthy diet based on lots of vegetables and legumes and good fat. Avoid processed food and processed carbohydrates. Learn to prepare your own meals. Learn to read labels and avoid high fructose corn syrup, processed chemicals added to increase shelf life and preprepared meals. Avoid fast foods. Learn to eat slowly and plan meals for a week. Try to count calories and be mindful off daily calorie intake. Get into the habit of keeping an eye on your weight by using an appropriate scale. Learn to log exercise and discussed fitness Apps like [employer] which can help keep log off calories taken versus calories burned. Local food should be preferred. Discussed Dirty Dozen Versus Clean Fifteen. Discussed healthy supplements like fish oil, Tumeric, Curcumin, Melatonin, Resveratrol, Probiotics, Vitamin-D, Alpha-Lipoic acid, Vitamin-D and coconut oil. 2. It is important to exercise regularly. Is a good habit to walk at least 30-45 minutes a day. Gentle weightlifting with standard precautions to protect the back. Finding activity like cycling or hiking and get into the habit of engaging in it. Stretching before and after the exercises important. It is also important to contact me if there are any problems like shortness of breath, chest pain, back pain and joint or muscle pain associated with the exercise. 3. Discussed age appropriate screening guidelines. Colonoscopy needs to start at age 45 with stool for occult blood as appropriate. There is a new test that can test for genetic abnormalities in the stool sample. This would not replace a colonoscopy but could be used as a screening tool for patients who do not want a colonoscopy. We discussed the importance of early detection of colon cancer. 4. Discussed current guidelines with respect to breast examination, mammogram and pap smear for early detection of breast and cervical cancer. Patient advised to follow up with these appointments, gender specific/age specific of course if applicbale 5. Discussed safe driving and no use of smart phone while driving 6. Age-appropriate immunizations were discussed. A tetanus booster is needed every 10 years. Flu vaccine is recommended every year just before the start of the flu season. Shingles vaccine is recommended after age 50 but not all insurances cover it. Pneumonia vaccine is given after age 65 unless there are certain comorbidities for which it is started earlier. 7. Diagnostic labs were discussed. These could include CBC CMP and lipids with fasting blood glucose and insulin levels. Vitamin D and hemoglobin A1c testing might be appropriate PSA screening and false negatives. 8. Recommended body composition. Discussed body composition analysis with patient in significant detail. She will work on losing some weight and increasing her phase angle and body composition 9. [facility]ST/HCP paperwork discussed, neurocognitive assesment if appropriate/warranted. Plan: * Treatment: * Procedure Codes:??40335 NO S HOW OFFICE VISIT * Images: Billing Information: * Visit Code:?? * Procedure Codes:?? 07379 NO SHOW OFFICE VISIT. Care Plan Details* * Sign off status: Pending * Provider:??JACKIE ANSARI NP Date:??05/16 History and Physical Notes * HPI (History of Present Illness) Category Sub-Category Detail Notes Category Not es Constitutional 47-year-old male patient here today for Chronic disease management follow-up visit Patient seen and examined. Full past medical history, social history, family history, allergies and current medications were reviewed and updated. He has not been seen in her office in quite some time about 2 years Presents to the clinic with his today Last labs in June 2020/CPE COVID MRNA shots x 3 Flu shot - he can't get them because he says every time he gets the shot, he gets pneumonia #He has a prediabetic A1c of 5.9-6.0 he says his diet has not been great, only eats cheese and coffee in the AM , snacks a lot on high sugary foods has been gaining a lot of weight his BMI now is 39, bordering morbid obesity discussed in detail carb reduction, eating more healthy fats and proteins, exercising as tolerated such as swimming which would be less strenuous on his joints he has lost 11 lbs since last visit #Polyarthralgia He complains of symmetric joint pain in his feet, knees, low back, and fingers denies arthralgia anywhere else 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 We sent in a request for an auth for a CPAP along with the report to Lisa for auto titration CPAP #Colonoscopy He says his last colonoscopy was about 6 yrs ago, and his sister from colon cancer in 2020 in her early 40's. His GI specialist told him he needs to do a colonoscopy every 5 years given familial history Ordered referall for colonoscopy #HTN BP 150/80 in the office We will check it again next visit given obesity, likely stage 1 Meanwhile, patient was told to cut down on sodium intake and eat a healthier diet #Grieving/depression Patient tearful in the office today and reports feeling depressed due to his sister passing away, weight gain, and joint pain He says on most days he just stays in bed and doesn't want to do anything Has a hard time going to work and staying focused He says his has been supportive, and doesn't feel like he needs any additional help with the grieving process/depression We strongly suggested he tries psychotherapy and/or an antidepressant He feels he wants to get through it on his own with his family support He denies SI/HI He was instructed to go immediately to ER and call us if he experiences any worsening symptoms He says he will discuss psychotherapy/medication with us next time Comprehensive labs reviewed Prediabetic A1c of 6.0 Chemistry panel and renal function is stable Lipids stable D is 23 Cardiac CRP unremarkable ESR is elevated Rheumatoid factor is negative Examination Category Sub-Category Detail Notes Category Not es General Examination GENERAL APPEARANCE: in no ac elder distress, well developed, well nourished HEAD: normocephalic, atrau matic EYES: pupils equal, round, reactive to light and accommodation EARS: normal THROAT: clear NECK/THYROID: neck supple, full ra nge of motion, no cervical lymphadenopathy HEART: no murmurs, regular rate and rhythm, S1, S2 normal LUNGS: clear to auscultatio n bilaterally ABDOMEN: normal, bowel sounds present, soft, nontender, nondistended NEUROLOGIC: nonfocal, motor stre ngth normal upper and lower extremities, sensory exam intact SKIN: no suspicious lesion s, warm and dry EXTREMITIES: no clubbing, cyanosi s, or edema ORAL CAVITY: mucosa moist
--- OUTSIDE RECORDS SUMMARY | 2024-12-04 11:18 | XMS_ITS | Patient Health Record ---
Author Organization [facility] Address [address] [place] [address] Care Team Providers Care Ceo Ziff Davis Name Role Phone MEGAN LANG Unavailable [phone] ALLERGIES No Known Allergies REASON FOR REFERRAL No Information SOCIAL HISTORY Tobacco Use: Social History Observation Description Date Details (start date - stop date) Former Smoker NA - NA Sex Assigned At : Social History Observation Description Sex Assigned At Unknown Tobacco Use/Smoking Question Answer Notes Are you a former smoker How long has it been since you last smoked? > 10 years PROBLEMS Problem Type ICD Code Onset Dates Problem Status W/U Status Risk SNOMED Code Notes Problem Other obesity due to excess calories (E66.09) Active confirmed 914684742 Problem Other obesity (E66.8) Active confirmed Obesity (591077115) Problem Hyperlipidemia, unspecified (E78.5) Active confirmed Hyperlipidemia (74054273) Problem Lipoprotein deficiency (E78.6) Active confirmed Lipoprotein deficiency disorder (266491119) Problem Body mass index (BMI) 38.0-38.9, adult (Z68.38) Active confirmed Body mass ind ex 35.00 to 39.99 (197157177454311) Problem Encounter for screening colonoscopy (Z12.11) Active confirmed 888473520 Problem JENNIFER (obstructive sleep apnea) (G47.33) Active confirmed 90552070 Problem Body mass index [BMI] 39.0-39.9, adult (Z68.39) Active confirmed 535478054 PLAN OF TREATMENT Pending Test Test Name Order Date Hemoglobin A1c 08/08/2019 Hemoglobin A1c 06/22/2020 Lipid Panel 06/22/2020 Lipid Panel 08/08/2019 Comp. Metabolic Panel (14) 08/08/2019 Comp. Metabolic Panel (14) 06/22/2020 CBC 08/08/2019 CBC 06/22/2020 Urinalysis 08/08/2019 HEMOGLOBIN A1C 12/17/2019 LIPID PANEL 12/17/2019 UC XR L-Spine 2-3 Views 08/08/2019 Future Test Test Name Order Date 25OH VITAMIN D 03/09/2022 CBC (COMPLETE BLOOD COUNT) WITH DIFF COMPREHENSIVE METABOLIC PANEL 03/09/2022 CRP, HIGH SENSITIVITY 03/09/2022 HEMOGLOBIN A1C 03/09/2022 LIPID PANEL 03/09/2022 RHEUMATOID FACTOR 03/09/2022 TSH WITH REFLEX TO FT4 03/09/2022 URINALYSIS W/REFLEX CULTURE 03/09/2022 ESR 03/09/2022 [place] DISEASE, ANTIBODY PANEL 03/09 HEMOGLOBIN A1C 07/15/2022 Insurance Providers Payer Name Payer Address Payer Phone Subscriber Number Group Number Insured Name Patient Relationship to Insured Coverage Start Date Coverage End Date [employer] [address] [address] [place] [address] [id number] [phone] NIKHIL STRANGE Self - patient is the insured MEDICAL (GENERAL) HISTORY Medical History History ICD Code asthma Surgical History Surgery Date(Month/Year) right knee arthroscopy
--- OUTSIDE RECORDS SUMMARY | 2024-12-04 11:18 | XMS_ITS | Clinical Summary ---
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 Name Role Phone Jose Vela MD Primary Care Provider [phone] Social History Tobacco Use Types Packs/Day Years Used Date Smoking Tobacco: Never Assessed Sex and Gender Information Value Date Recorded Sex Assigned at Not on file Legal Sex Male 10:45 PM EST Gender Identity Not on file Sexual Orientation Not on file Plan of Treatment Health Maintenance Due Date Last Done Comments DTaP,Tdap,and Td Vaccines (1 - Tdap) 1992 Hepatitis B Vaccines (1 of 3 - 19+ 3-dose series) 1992 Cholesterol Screening (Lipid Panel) 09/17/2022 Colorectal Cancer Screening: Colonoscopy 09/17/2022 Depression Screening 09/17/2022 HIV Screening 09/17/2022 Hepatitis C Screening 09/17/2022 Social Influencers of Health Screening 09/17/2022 Pneumococcal Vaccine: 50+ Ye ars (1 of 1 - PCV) 2023 Zoster Vaccines (1 of 2) 2023 COVID-19 Vaccine ( - 2023-2 5 season) 2024 Influenza Vaccine (#1) 2024 HIB Vaccines Aged Out No longer eligi ble based on patient's age to complete this topic HPV Vaccines Aged Out No longer eligi ble based on patient's age to complete this topic Hepatitis A Vaccines Aged Out No long er eligible based on patient's age to complete this topic IPV Vaccines Aged Out No longer eligi ble based on patient's age to complete this topic MMR Vaccines Aged Out No longer eligi ble based on patient's age to complete this topic Meningococcal ACWY Vaccine Aged Out N o longer eligible based on patient's age to complete this topic Meningococcal B Vacine Aged Out No lo nger eligible based on patient's age to complete this topic Pneumococcal Vaccine: Pediat rics (0 to 5 Years) and At-Risk Patients (6 to 64 Years) Aged Out No longer eligible b ased on patient's age to complete this topic RSV Immunization Patients Un jazmyn 20 months Aged Out No longer eligible b ased on patient's age to complete this topic Varicella Vaccines Aged Out No longer eligible based on patient's age to complete this topic Care Teams Cold Storage Supervisor Relationship Specialty Start Date End Date Jose Vela MD PCP - General 08/31/22
== END 2024-12-04 10:56 | disposition home or self-care (01) ==
PROVIDERS: PCP Internal Medicine; Visit Provider Hospitalist
DX: G47.33 Obstructive sleep apnea (adult) (pediatric) (principal); Z99.89 Dependence on other enabling machines and devices; F51.01 Primary insomnia; J31.0 Chronic rhinitis; J45.40 Moderate persistent asthma, uncomplicated
CPT/HCPCS: 99214